=== PATIENT | male | born 1940 | race African-American/Black ===

== ENCOUNTER 2016-11-17 14:01 | Emergency (ER) | payer MEDICARE, MEDICAID ==
[~2016-11-17] VITALS: Ht 177.8 cm; Wt 77.1 kg
[~2016-11-17 14:01] MED LIST: ALLOPURINOL300 M1 ORAL; AMLODIPINE BESYL5 MG PO; BUSPAR10 MG ORAL; CELEBREX200 MG ORAL; CELEBREX200 MG PO; COGENTIN2 MG ORAL; COLCHICINE0.6 MG ORAL; COLCRYS0.6 M1 PO; FOLIC ACID1 MG ORAL; HALDOL 2 MG/ML PO; HALOPERIDOL1 MG ORAL; HALOPERIDOL1 MG PO; HYTRIN5 MG PO; NORVASC5 MG ORAL; QUETIAPINE FUM100 MG ORAL
[2016-11-17 14:08] VITALS: BP 154/105
--- NOTE | 2016-11-17 15:10 | Diagnostic Imaging Report ---
Indication: Chest Pain Comparison: 07/13/16 A single view chest radiograph was obtained. Findings: Lungs are clear but not evaluated well because the study is overexposed. Heart size is normal. Aorta is mildly enlarged. Bones are grossly unremarkable. Impression: No acute disease. Suboptimal study technically.
[2016-11-17 15:12] LABS: BASOPHILS % (AUTO) 1.1 % (0.0-2.0); EOSINOPHILS % (AUTO) 0.1 % (0.0-3.0); LYMPHOCYTES % (AUTO) 11.7 % (20.0-45.0); MEAN CORPUSCULAR HEMOGLOBIN 32.5 PG (27.0-31.0); MEAN CORPUSCULAR HGB CONC 32.9 G/DL (32.0-36.0); MEAN CORPUSCULAR VOLUME 99 FL (80-99); MEAN PLATELET VOLUME 8.5 FL (6.5-10.1); MONOCYTES % (AUTO) 6.8 % (1.0-10.0); NEUTROPHILS % (AUTO) 80.2 % (45.0-75.0); PLATELET COUNT 137 K/UL (150-450); RED CELL DISTRIBUTION WIDTH 13.3 % (11.6-14.8); WHITE BLOOD COUNT 9.3 K/UL (4.8-10.8)
--- NOTE | 2016-11-17 15:20 | Diagnostic Imaging Report ---
Indication: Cognitive impairment Technique: Contiguous 5 mm thick transaxial imaging of the head obtained in a Siemens Sensation [address] scanner. Soft tissue and bone windows generated. Total Dose length Product (DLP): [address] Dose Index Volume (CTDIvol): 70.38 mGy Comparison: none Findings: There is mild prominence of the ventricles, basal cisterns, and cerebral sulci consistent with atrophy. Mild, nonspecific, white matter hypoattenuation is noted throughout the brain consistent with chronic small vessel disease. There is no midline shift, edema, acute hemorrhage, mass effect, or abnormal extra-axial fluid collections. Bones and extra osseous soft tissues are unremarkable. Impression: No acute intracranial bleed, mass effect or edema. Mild atrophy of the brain. Nonspecific white matter hypoattenuation probably due to chronic small vessel disease. The CT scanner at [facility] is accredited by the [employer] and the scans are performed using protocols designed to limit radiation exposure to as low as reasonably achievable to attain images of sufficient resolution adequate for diagnostic evaluation.
[2016-11-17 15:34] LABS: ALANINE AMINOTRANSFERASE 7 U/L (3-41); ALBUMIN/GLOBULIN RATIO 1.7 (1.0-2.7); ANION GAP 18 (5-15); ASPARTATE AMINO TRANSFERASE 17 U/L (5-40); CARBON DIOXIDE 23 mEQ/L (20-30); CHLORIDE 100 mEQ/L (98-107); CREATININE 0.9 mg/dL (0.7-1.2); HEMOLYSIS 64; SODIUM 141 mEQ/L (135-145); TOTAL PROTEIN 7.2 g/dL (6.6-8.7); TROPONIN I < 0.30 ng/mL (<=0.30)
[2016-11-17 15:35] LABS: AMMONIA 29 umol/L (16-60)
[2016-11-17 15:49] LABS: ACETAMINOPHEN < 10 ug/mL (10-30); ALCOHOL < 10 mg/dL
[2016-11-17 15:59] LABS: CKMB < 1.5 ng/mL (< 6.7)
[2016-11-17 16:44] LABS: APPEARANCE,URINE CLEAR; KETONES,URINE NEGATIVE (NEGATIVE); LEUKOCYTE ESTERASE ,URINE NEGATIVE (NEGATIVE); NITRITE,URINE NEGATIVE (NEGATIVE); PH,URINE 6.5 (4.5-8.0); PROTEIN,URINE 2+ (NEGATIVE); UROBILINOGEN,URINE NORMAL MG/DL (0.0-1.0)
[2016-11-17 16:49] VITALS: BP 148/84
[2016-11-17 16:51] VITALS: BP 148/84
[2016-11-17 16:57] LABS: BACTERIA,URINE FEW /HPF; WBC,URINE 0-2 /HPF (0 - 0)
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
--- NOTE | 2016-12-20 03:28 | Cardiology Report ---
APPROVED REPORT EKG Measurement Heart [id number] Sinus rhythm with premature atrial complexes Otherwise normal ECG
== END 2016-11-17 17:00 | disposition home or self-care (01) ==
LOC: EDBD 14:01 → EMR 14:14
DX: F31.9 Bipolar disorder, unspecified (principal); I10 Essential (primary) hypertension; N40.0 Benign prostatic hyperplasia without lower urinary tract symptoms
CPT/HCPCS: 36415; 70450; 71010; 80053; 80300; 81003; 82140; 82550; 82553; 84484; 85025; 93005; 96360; 96361; 99284; G0480; 80329

== ENCOUNTER 2016-12-15 13:45 | Outpatient (RCR) | payer MEDICARE, MEDICAID | END 2016-12-23 | disposition home or self-care (01) | LOC: PTY 13:45 | DX: R26.9 Unspecified abnormalities of gait and mobility (principal) | CPT/HCPCS: 97110; 97162; G8978; G8979 ==

== ENCOUNTER 2016-12-29 12:30 | Outpatient (RCR) | payer MEDICARE, MEDICAID | END 2017-01-23 | disposition home or self-care (01) | LOC: PTY 12:30 | DX: R26.9 Unspecified abnormalities of gait and mobility (principal) ==

== ENCOUNTER 2017-07-13 13:31 | Outpatient (RCR) | payer MEDICARE, MEDICAID, OTHER | END 2017-07-25 | disposition home or self-care (01) | LOC: PTY 13:31 | DX: R53.1 Weakness (principal); R26.9 Unspecified abnormalities of gait and mobility; I10 Essential (primary) hypertension; Z86.73 Personal history of transient ischemic attack (TIA), and cerebral infarction without residual deficits; F31.9 Bipolar disorder, unspecified; Z91.81 History of falling; F41.9 Anxiety disorder, unspecified; F32.9 Major depressive disorder, single episode, unspecified | CPT/HCPCS: 97110; 97161; G8978; G8979 ==

== ENCOUNTER 2017-08-19 13:00 | Outpatient (RCR) | payer MEDICARE, MEDICAID | END 2017-08-25 | disposition home or self-care (01) | LOC: PTY 13:00 | DX: R53.1 Weakness (principal); R26.9 Unspecified abnormalities of gait and mobility ==

== ENCOUNTER 2017-09-21 13:38 | Outpatient (RCR) | payer MEDICARE, MEDICAID, OTHER | END 2017-09-24 | disposition home or self-care (01) | LOC: PTY 13:38 | DX: R53.1 Weakness (principal); R26.9 Unspecified abnormalities of gait and mobility; Z86.73 Personal history of transient ischemic attack (TIA), and cerebral infarction without residual deficits; I10 Essential (primary) hypertension; F31.9 Bipolar disorder, unspecified; F41.9 Anxiety disorder, unspecified; Z87.820 Personal history of traumatic brain injury ==

== ENCOUNTER 2017-09-28 13:54 | Outpatient (RCR) | payer MEDICARE, MEDICAID, OTHER ==
--- NOTE | 2017-10-12 09:11 | IOP Physician Progress Note ---
IOP Physician Progress Note Problem: other (specify) Description of Symptoms: bipolar disorder is the essential part of the picture, but he continues to use MJ to quell dysphoria. Diagnosis [place] I: Bipolar disorder, mixed type [place]: II deferred [place]: III arthritis, high BP, BPH, gout [place]: IV sensitive to stressors [place]: V 31-40 Progress Since Last Eval: Fair. Current Med Management: Refill given for haloperidol Home Meds: Reported Medications Buspirone Hcl* (BUSPAR*) 10 Mg Tablet, 10 MG ORAL hs, #15 TAB 0 Refills 02/07/15 Allopurinol* (ALLOPURINOL*) 300 Mg Tablet, 300 MG ORAL DAILY, TAB 07/04/14 Colchicine (COLCRYS) 0.6 Mg Tablet, 0.6 MG PO bid, TAB 07/04/14 Terazosin HCl (Terazosin HCl) 5 Mg Cap, 5 MG PO QHS, CAP 0 Refills 07/04/14 Folic Acid* (FOLIC ACID*) 1 Mg Tablet, 1 MG ORAL DAILY, TAB 07/04/14 Haloperidol* (HALDOL*) 1 Mg Tablet, 20 MG ORAL bedtime, TAB 09/06/13 Benztropine Mesylate* (COGENTIN*) 2 Mg Tab, 2 MG ORAL BEDTIME, TAB 07/04/13 Celecoxib* (CELEBREX*) 200 Mg Capsule, 200 MG PO DAILY 01/13/13 Amlodipine Besylate* (AMLODIPINE BESYLATE*) 5 Mg Tablet, 5 MG PO DAILY 01/13/13 Appearance: well groomed Affect: labile Mood: no abnormalities, anxious Thought Process: no abnormalities Thought Content: no abnormalities Suicidal/Homicidal Ideations: not present Risk Assessment: low risk at this time Cognition: no abnormalities Accomplishments before DC: Needs to deal with feelings without recourse to marijuana Comments No physical problems are acute. PHIL MCKINNEY Oct 12, 2017 09:11
== END 2017-10-25 | disposition home or self-care (01) ==
LOC: PTY 13:54
DX: R53.1 Weakness (principal); R26.89 Other abnormalities of gait and mobility; Z86.73 Personal history of transient ischemic attack (TIA), and cerebral infarction without residual deficits; I10 Essential (primary) hypertension; F31.9 Bipolar disorder, unspecified; F41.9 Anxiety disorder, unspecified
CPT/HCPCS: 97110; G8978; G8979

== ENCOUNTER 2017-11-06 13:45 | Outpatient (RCR) | payer MEDICARE, MEDICAID, OTHER ==
--- NOTE | 2017-10-27 15:22 | IOP Daily Group Progress Note ---
IOP Daily Group Progress Note Treatment Plan/Target Problem: Date: Oct 27, 2017 Problem: impaired thoughts Program: reflections Group Reflections - Thursday: group 2 (10:35am-11:20am) Therapy Focus/Approach of Group: skills Goal(s) of Group: communication skills, goal setting, improving self esteem, increasing independence, measurable signs of progress, socialization skills Observations: concrete thinking, constricted affect, delusions, depressed mood , participated Staff Intervention: assisted identifying coping tools, clarified pt issues, facilitated discussion, normalized feelings, provided psycho-education, provided support, summarized, validated feelings Response/Progress Noted: Skills- Focus was on setting goals that are realistic, achievable and measurable. Patient was asked to set weekly and goal for month.. The patient was also asked if they believe in new years resolution and if so what is their resolution for coming year. The pt could be seen at time talking to himself quietly and responding to internal stimuli. The pt stated "I don't really have resolutions for year.I keep a daily hit list and check thing off as I go along. I continue daily, so I focus on daily goal rather then yearly goals." CAREY CROWLEY Oct 27, 2017 15:22
--- NOTE | 2017-10-27 16:07 | IOP Daily Group Progress Note ---
IOP Daily Group Progress Note Treatment Plan/Target Problem: Date: Oct 27, 2017 Problem: impaired thoughts Program: reflections Group Reflections - Thursday: group 3 (11:30am-12:15pm) Therapy Focus/Approach of Group: symptoms Goal(s) of Group: assertiveness skills, communication skills, coping tools for symptoms, establishing appropriate boundaries, explore relationships to family, identify triggers to symptoms, interpersonal relationships, socialization skills , symptom management Observations: concrete thinking, constricted affect, delusions, depressed mood , participated Staff Intervention: facilitated discussion, provided psycho-education, provided support, summarized, taught assertiveness skills Staff Intervention: Symptom Management. Group discussed handout on Assertive Communication Skill. Learning to say NO and setting limitations and boundaries with others. The pt stated " With people who are not my family members I have no trouble say no and setting limits. However with my daughter and grandchildren it can be challenging. I sometimes say yes when I want to say no." CAREY CROWLEY Oct 27, 2017 16:06
--- NOTE | 2017-11-17 16:38 | IOP Daily Group Progress Note ---
IOP Daily Group Progress Note Treatment Plan/Target Problem: Problem: impaired thoughts Program: reflections Group Reflections - Thursday: group 1 (9:40am-10:25am) Therapy Goal(s) of Group: identify mood, impact of current issues on mood, verbalize current thoughts and mood Observations: anxious, engaged, open, participated, positive mood, self disclosing, responded to prompts Staff Intervention: assessed for safety/suicidality, assessed pt's current mood , encouraged patient participation, facilitated discussion, prompted pt, provided support, reflective listening, validated progress Staff Intervention: Therapist prompted pt to identify and verbalize current mood and impact of life stressors on current mood. Response/Progress Noted: Pt participated in a therapeutic process group exercise helping the PT to identify and verbalize their current mood and to identify and verbalize the impact of their current life issues on their mood. 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 Pt. denied suicidal/ homicidal ideation or plan. Mehran Calles Nov 17, 2017 16:38
--- NOTE | 2017-11-18 15:36 | IOP Daily Group Progress Note ---
IOP Daily Group Progress Note Treatment Plan/Target Problem: Date: Nov 18, 2017 Problem: depression Program: reflections Group - Thursday: group 1 (9:40am-10:25am) Therapy Focus/Approach of Group: process Goal(s) of Group: goal setting, identify mood, impact of current issues on mood , verbalize current thoughts and mood, weekend planning Observations: attentive, engaged, open, participated, positive mood, self disclosing, responded to prompts Staff Intervention: assessed for safety/suicidality, assessed pt's current mood , encouraged patient participation, facilitated discussion, helped to set goals , prompted pt, provided support, reflective listening, validated feelings Staff Intervention: Therapist prompted pt to identify and verbalize his current mood and what he is feeling, the impact of life stressors on current mood and to identify and verbalize one goal he would like to accomplish during the following week. Therapist provided a safe space for patients to share and work on their issues. Response/Progress Noted: Pt participated in a therapeutic process group exercise helping the PT to identify and verbalize their current mood and to identify and verbalize the impact of their current life issues on their mood. Pt benefited from the group as evidenced by stating that he is feeling "relaxed and hopeful" and has a goal of making an appointment for physical therapy to help with his legs. Pt. denied suicidal/homicidal ideation or plan. Mehran Calles Nov 18, 2017 15:36
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
== END 2017-11-25 | disposition home or self-care (01) ==
LOC: PTY 13:45
DX: R26.89 Other abnormalities of gait and mobility (principal); M10.9 Gout, unspecified; M19.90 Unspecified osteoarthritis, unspecified site; I73.9 Peripheral vascular disease, unspecified

== ENCOUNTER 2017-12-07 13:00 | Outpatient (RCR) | payer MEDICARE, MEDICAID, OTHER ==
--- NOTE | 2017-12-08 09:05 | IOP Physician Progress Note ---
IOP Physician Progress Note Problem: other (specify) Description of Symptoms: The patient says that he is doing better, that he is no longer having racing thoughts. They began in 1973, and continued intermittently, years at a time, then gone for years, but have stopped in recent years. He thinks it is caused by the Republicans!, and he starts calling the FBI. Diagnosis [place] I: Bipolar disorder, mixed type [place]: II deferred [place]: III on waker for gait instabilty, aarthritisw, BPH, high BP, gout [place]: IV moderate [place]: V 31-40 Progress Since Last Eval: The patient describes, calmly, what sound like psychotic experiences. Current Med Management: This is not changing at this time. Home Meds: Reported Medications Buspirone Hcl* (BUSPAR*) 10 Mg Tablet, 10 MG ORAL hs, #15 TAB 0 Refills 02/07/15 Allopurinol* (ALLOPURINOL*) 300 Mg Tablet, 300 MG ORAL DAILY, TAB 07/04/14 Colchicine (COLCRYS) 0.6 Mg Tablet, 0.6 MG PO bid, TAB 07/04/14 Terazosin HCl (Terazosin HCl) 5 Mg Cap, 5 MG PO QHS, CAP 0 Refills 07/04/14 Folic Acid* (FOLIC ACID*) 1 Mg Tablet, 1 MG ORAL DAILY, TAB 07/04/14 Haloperidol* (HALDOL*) 1 Mg Tablet, 20 MG ORAL bedtime, TAB 09/06/13 Benztropine Mesylate* (COGENTIN*) 2 Mg Tab, 2 MG ORAL BEDTIME, TAB 07/04/13 Celecoxib* (CELEBREX*) 200 Mg Capsule, 200 MG PO DAILY 01/13/13 Amlodipine Besylate* (AMLODIPINE BESYLATE*) 5 Mg Tablet, 5 MG PO DAILY 01/13/13 Appearance: well groomed Affect: labile Mood: anxious Thought Process: illogical Thought Content: other - racing thoughts are gone, he says Suicidal/Homicidal Ideations: not present Risk Assessment: low risk at this time Accomplishments before DC: Needs to work on containment of manic behavior and thinking. Comments There are no acute physical problems. PHIL MCKINNEY Dec 08, 2017 09:05
== END 2017-12-23 | disposition home or self-care (01) ==
LOC: PTY 13:00
DX: R26.89 Other abnormalities of gait and mobility (principal); M10.9 Gout, unspecified; M19.90 Unspecified osteoarthritis, unspecified site; I73.9 Peripheral vascular disease, unspecified

== ENCOUNTER 2018-01-05 10:13 | Outpatient (RCR) | payer MEDICARE, MEDICAID, OTHER ==
--- NOTE | 2018-01-08 13:39 | IOP Daily Group Progress Note ---
IOP Daily Group Progress Note Treatment Plan/Target Problem: Problem: depression Group Reflections - : group 3 (11:30am-12:15pm) Therapy Focus/Approach of Group: symptoms Goal(s) of Group: anxiety reduction, coping tools for symptoms, counteracting negative thinking, decreasing isolation, identify activities to improve mood, support systems, symptom management, verbalize current thoughts and mood Goal(s) of Group: Goal of group was to introduce new thp to group and to identify current sxs and discuss how pts use coping skills to manage their sxs effectively. Observations: attentive, engaged, participating actively, positive mood, relaxed, self disclosing, responded to prompts Staff Intervention: assessed pt's current mood, assisted with identifying symptoms, encouraged patient participation, facilitated discussion, normalized feelings, provided support, reflective listening, summarized, validated feelings Staff Intervention: Thp prompted pt to identify current sxs of most significant impact and evaluate effective coping skills and successful approaches to sxs management. Thp provided positive verbal reinforcement for pts efforts to reduce impact of depressive sxs through behavioral activation and positive self-care. Response/Progress Noted: Pt discussed hx of MH sxs, including depression, anxiety, racing thoughts, and a remote hx of hallucinations ("[id number]"). Pt described using medical mj and prescription meds to cope w/ intermittent sxs and depressive episodes. Pt. presented w/ a positive demeanor and appeared enthusiastic and motivated to participate. ELIDA DICKENS Jan 08, 2018 13:39
--- NOTE | 2018-01-08 14:18 | IOP Daily Group Progress Note ---
IOP Daily Group Progress Note Treatment Plan/Target Problem: Problem: depression Group Reflections - Thursday: group 3 (11:30am-12:15pm) Therapy Focus/Approach of Group: symptoms Goal(s) of Group: anxiety reduction, coping tools for symptoms, counteracting negative thinking, decreasing isolation, how med issues impact mood, identify mood, support systems, symptom management, verbalize current thoughts and mood Goal(s) of Group: Goal of group was to introduce new thp to group and to identify current sxs and discuss how pts use coping skills to manage their sxs effectively. Observations: active listening skills, participating actively, responded to prompts Staff Intervention: assessed pt's current mood, assisted identifying coping tools, assisted with identifying symptoms, facilitated discussion, normalized feelings, provided support, reflective listening, validated feelings Staff Intervention: Thp prompted pt to identify current sxs of most significant impact and evaluate effective coping skills and successful approaches to sxs management. Thp provided positive verbal reinforcement for pts efforts to reduce impact of depressive sxs through behavioral activation and positive self-care. Response/Progress Noted: Pt declined to discuss current sxs management in great detail and appeared pleased to defer discussion to other participants. Pt listened attentively to others and expressed sympathy and concern for others in group. ELIDA DICKENS Jan 08, 2018 14:18
--- NOTE | 2018-01-11 09:09 | IOP Physician Progress Note ---
IOP Physician Progress Note Problem: other (specify) Description of Symptoms: The patient says that he has missed some time in the program as he had the flu, but that he is ok emotionally. He continues to smoke MJ daiily, without any sense it might contribute to his problems. Denies racing thoughts for the past 3 weeks. Diagnosis [place] I: Bipolar disorder, mixed type; substance abuse [place]: II deferred [place]: III BPH, arthritis, high BP, gout [place]: IV moderate [place]: V 31-40 Progress Since Last Eval: The patient thinks he is doing better; to me he seems about the same. Current Med Management: There are no changes planned. Home Meds: Reported Medications Buspirone Hcl* (BUSPAR*) 10 Mg Tablet, 10 MG ORAL hs, #15 TAB 0 Refills 02/07/15 Allopurinol* (ALLOPURINOL*) 300 Mg Tablet, 300 MG ORAL DAILY, TAB 07/04/14 Colchicine (COLCRYS) 0.6 Mg Tablet, 0.6 MG PO bid, TAB 07/04/14 Terazosin HCl (Terazosin HCl) 5 Mg Cap, 5 MG PO QHS, CAP 0 Refills 07/04/14 Folic Acid* (FOLIC ACID*) 1 Mg Tablet, 1 MG ORAL DAILY, TAB 07/04/14 Haloperidol* (HALDOL*) 1 Mg Tablet, 20 MG ORAL bedtime, TAB 09/06/13 Benztropine Mesylate* (COGENTIN*) 2 Mg Tab, 2 MG ORAL BEDTIME, TAB 07/04/13 Celecoxib* (CELEBREX*) 200 Mg Capsule, 200 MG PO DAILY 01/13/13 Amlodipine Besylate* (AMLODIPINE BESYLATE*) 5 Mg Tablet, 5 MG PO DAILY 01/13/13 Appearance: well groomed Affect: labile Mood: anxious Thought Process: illogical Thought Content: no abnormalities - history of raacing thoughts, but he says they are in remission, other Suicidal/Homicidal Ideations: not present Risk Assessment: low risk at this time Cognition: no abnormalities Accomplishments before DC: The patient could benefit by being less reliant upon marijuana Comments There are no acute physical problems. Selvin Greenfield MD Jan 11, 2018 09:09
== END 2018-01-23 | disposition home or self-care (01) ==
LOC: PTY 10:13
DX: R26.89 Other abnormalities of gait and mobility (principal); M10.9 Gout, unspecified; M19.90 Unspecified osteoarthritis, unspecified site; I73.9 Peripheral vascular disease, unspecified

== ENCOUNTER 2018-02-11 10:00 | Outpatient (RCR) | payer MEDICARE, MEDICAID, OTHER | END 2018-02-22 | disposition home or self-care (01) | LOC: PTY 10:00 | DX: R26.9 Unspecified abnormalities of gait and mobility (principal); M10.9 Gout, unspecified; M19.90 Unspecified osteoarthritis, unspecified site; I73.9 Peripheral vascular disease, unspecified ==

== ENCOUNTER 2018-03-02 10:50 | Outpatient (RCR) | payer MEDICARE, MEDICAID, OTHER ==
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
== END 2018-03-25 | disposition home or self-care (01) ==
LOC: PTY 10:50
DX: R26.9 Unspecified abnormalities of gait and mobility (principal); M10.9 Gout, unspecified; M19.90 Unspecified osteoarthritis, unspecified site; I73.9 Peripheral vascular disease, unspecified

== ENCOUNTER 2018-03-30 09:30 | Outpatient (RCR) | payer MEDICARE, MEDICAID | END 2018-04-24 | disposition home or self-care (01) | LOC: PTY 09:30 | DX: R26.9 Unspecified abnormalities of gait and mobility (principal) | CPT/HCPCS: 97110; G8978; G8979 ==

== ENCOUNTER 2018-04-29 09:13 | Outpatient (RCR) | payer MEDICARE, MEDICAID ==
--- NOTE | 2018-05-10 09:21 | IOP Physician Progress Note ---
IOP Physician Progress Note Problem: impaired thoughts Description of Symptoms: The patient says he is doing well, but he seems unstable to me. The patient says he forgot to take his haldol and was up for 48 hours. He also says he takes buspar regularly, but in fact ran out a long time ago. This all reflects upon his disorganization. Diagnosis [place] I: Bipolar disorder [place]: II deferred [place]: III arthritis, BPH,. hi BP, gout [place]: IV moderate [place]: V 31-=40 Progress Since Last Eval: The patient remains much the same, living in considerable denial of his issues, reluctant to identify as a patient., Current Med Management: Refill given for bupsar and haldol. Home Meds: Reported Medications Buspirone Hcl* (BUSPAR*) 10 Mg Tablet, 10 MG ORAL hs, #15 TAB 0 Refills 02/07/15 Allopurinol* (ALLOPURINOL*) 300 Mg Tablet, 300 MG ORAL DAILY, TAB 07/04/14 Colchicine (COLCRYS) 0.6 Mg Tablet, 0.6 MG PO bid, TAB 07/04/14 Terazosin HCl (Terazosin HCl) 5 Mg Cap, 5 MG PO QHS, CAP 0 Refills 07/04/14 Folic Acid* (FOLIC ACID*) 1 Mg Tablet, 1 MG ORAL DAILY, TAB 07/04/14 Haloperidol* (HALDOL*) 1 Mg Tablet, 20 MG ORAL bedtime, TAB 09/06/13 Benztropine Mesylate* (COGENTIN*) 2 Mg Tab, 2 MG ORAL BEDTIME, TAB 07/04/13 Celecoxib* (CELEBREX*) 200 Mg Capsule, 200 MG PO DAILY 01/13/13 Amlodipine Besylate* (AMLODIPINE BESYLATE*) 5 Mg Tablet, 5 MG PO DAILY 01/13/13 Appearance: well groomed Affect: expansive Mood: expansive Thought Process: illogical Thought Content: no abnormalities Suicidal/Homicidal Ideations: not present Risk Assessment: low risk at this time Cognition: no abnormalities Accomplishments before DC: The patient needs to work on better strucfturing of his life and dealing with issues of bipolarity. Comments There are no acute physical problems. Selvin Greenfield MD May 10, 2018 09:21
--- NOTE | 2018-05-25 14:47 | IOP Daily Group Progress Note ---
IOP Daily Group Progress Note Treatment Plan/Target Problem: Date: May 25, 2018 Group Reflections - Thursday: group 3 (11:30am-12:15pm) Therapy Goal(s) of Group: increasing independence, interpersonal relationships, positive thoughts to improve mood, socialization skills, symptom management Observations: active listening skills, attentive, lucid, made insightful comments, participated spontaneously, smiled when appropriate Staff Intervention: provided psycho-education, provided reassurance, provided redirection, provided support, reflective listening Staff Intervention: Therapist provided the group with a worksheet about how relationships influence and the individuals mood and reflects in his/ her behaviors. Therapist describe the emotional connection between relationships and mood changes, and invited pt to share related experiences with the group. Therapist facilitated the discussion prompting pt to participate and provide feedback to peers .Therapist provided emotional support and validated pt feelings Response/Progress Noted: Pt was very active during group discussion, he was able to share a personal situation with the group and ask for feedback and listened to them with attention. Pt stated I have a situation, there is this young girl of 32 years old that calls me because she wants to have relationship with me but she hangs up and say nothing. Pt benefited from group participation by learning to further develop awareness of the influence of relationships in mood changes and behaviors. JAYCOB AHUMADA May 25, 2018 14:47
== END 2018-05-25 | disposition home or self-care (01) ==
LOC: PTY 09:13
DX: R26.9 Unspecified abnormalities of gait and mobility (principal)

== ENCOUNTER 2018-06-08 09:25 | Outpatient (RCR) | payer MEDICARE, MEDICAID ==
--- NOTE | 2018-06-08 15:24 | IOP Daily Group Progress Note ---
IOP Daily Group Progress Note Group Reflections - Thursday: group 3 (11:30am-12:15pm) Therapy Goal(s) of Group: coping tools for symptoms, identify activities to improve mood, symptom management Staff Intervention: clarified pt issues, facilitated discussion, prompted pt Staff Intervention: The therapist opened the group with psychoeducation; explaining how behavioral health symptoms can exacerbate to the point of a personal crisis without early intervention by self and others. Therapist facilitate a group process wherein clients identified several behavioral health symptoms they are currently struggling with as well as several tools and techniques that can be applied to effectively manage such symptoms. In addition, the therapist engaged the group in a 3-minute Breathing Space mindfulness exercise to demonstrate one way of training to mind to notice subtle symptoms as a means of prevention. Response/Progress Noted: The client seemed highly guarded and disinterested in actively participating in today's group. For example, he firmly responded "that's it" after saying just a few words about his thoughts about symptom management; then, he said "you can write whatever you want on the board" following the therapist's request to list "taking your medication as prescribed" on the white board after he mentioned this in his share. Mik Cunha LCSW Jun 08, 2018 15:24
--- NOTE | 2018-06-15 13:27 | IOP Daily Group Progress Note ---
IOP Daily Group Progress Note Group Reflections - Thursday: group 3 (11:30am-12:15pm) Therapy Goal(s) of Group: socialization skills, stress reduction, support systems, symptom management, verbalize current thoughts and mood Observations: made insightful comments, participated spontaneously, participating actively, self disclosing Staff Intervention: reframed, set limits, summarized, taught assertiveness skills Staff Intervention: Topic for this Symptom Management group was: Self-care Assessment. Therapist used an handout from [employer] that appraises self-care in different domains such as emotional, physical and social. Therapist educated on the importance of Self-Care to develop awareness, positive outlook of life, and stress reduction. Therapist facilitate the group discussion and helped the client to complete the self-assessment worksheet review the areas of self-care that needed improvement. Therapist followed this up with a group discussion, encouraging patients to use this information in moving forward incorporating it in their activities planning. Response/Progress Noted: Pt participated in a therapeutic process group exercise helping the PT to assess and verbalize their current self-care strategies and evaluate the impact on their mood. Patient denied suicidal/homicidal ideation or plan. Patient stated I used to do more in general more walking, going to the gym, taking 2 or 3 showers every day, now with my legs as they are and with the walker I am working in not losing my legs I maintaining what I have. Now that I cannot do physical activity I am writing more .That is my self-care. Pt. benefitted from group by not only by reflecting on herself but by listening to his peers share what helps them with their healing. JAYCOB AHUMADA Jun 15, 2018 13:27
== END 2018-06-25 | disposition home or self-care (01) ==
LOC: PTY 09:25
DX: R26.9 Unspecified abnormalities of gait and mobility (principal); R53.1 Weakness; I10 Essential (primary) hypertension; Z86.73 Personal history of transient ischemic attack (TIA), and cerebral infarction without residual deficits; M19.90 Unspecified osteoarthritis, unspecified site; F41.9 Anxiety disorder, unspecified; F31.9 Bipolar disorder, unspecified; M10.9 Gout, unspecified; I73.9 Peripheral vascular disease, unspecified

== ENCOUNTER 2018-06-29 09:49 | Inpatient (IN) | payer MEDICARE, MEDICAID ==
[~2018-06-29] VITALS: Ht 185.4 cm; Wt 74.4 kg
[2018-06-29] MEDS ORDERED: Sodium Chloride 500ML 500 ML IV ONE (10:31)
[2018-06-29 11:24] LABS: BASOPHILS % (AUTO) 0.9 % (0.0-2.0); EOSINOPHILS % (AUTO) 1.9 % (0.0-3.0); HEMATOCRIT 43.9 % (42.0-52.0); LYMPHOCYTES % (AUTO) 17.1 % (20.0-45.0); MEAN CORPUSCULAR VOLUME 97 FL (80-99); MONOCYTES % (AUTO) 6.4 % (1.0-10.0); NEUTROPHILS % (AUTO) 73.8 % (45.0-75.0); PLATELET COUNT 151 K/UL (150-450); RED BLOOD COUNT 4.53 M/UL (4.70-6.10); RED CELL DISTRIBUTION WIDTH 12.6 % (11.6-14.8); WHITE BLOOD COUNT 9.2 K/UL (4.8-10.8)
[2018-06-29 11:25] VITALS: BP 121/87
[2018-06-29 11:33] LABS: ANION GAP 13 mmol/L (5-15); BLOOD UREA NITROGEN 12 mg/dL (7-18); CALCIUM 8.6 MG/DL (8.5-10.1); CARBON DIOXIDE 22 MMOL/L (21-32); CHLORIDE 104 MMOL/L (98-107); CREATININE 1.1 MG/DL (0.55-1.30); POTASSIUM 3.3 MMOL/L (3.5-5.1); SODIUM 139 MMOL/L (136-145)
[2018-06-29 11:47] LABS: ALANINE AMINOTRANSFERASE 14 U/L (12-78); ALBUMIN 3.8 G/DL (3.4-5.0); ALBUMIN/GLOBULIN RATIO 1.1 (1.0-2.7); ALKALINE PHOSPHATASE 56 U/L (46-116); ASPARTATE AMINO TRANSFERASE 14 U/L (15-37); BILIRUBIN,TOTAL 0.8 MG/DL (0.2-1.0); CKMB 1.1 NG/ML (0.0-3.6); CREATINE KINASE 58 U/L (26-308)
--- NOTE | 2018-06-29 11:55 | Diagnostic Imaging Report ---
Indication: Chest pain Technique: One view of the chest Comparison: 11/17/2016 Findings: The heart is borderline enlarged. This may be artifactual in part due to to suboptimal inspiration. Lungs and pleural spaces are clear. The aorta is somewhat ectatic Impression: Border line cardiomegaly. No acute process
--- NOTE | 2018-06-29 12:44 | Emergency Room Report ---
History of Present Illness General Chief Complaint: General Complaint Source: Patient Present Illness HPI Patient was seen by Dr. Jamie borjas last week Patient was found to be in new-onset atrial fibrillation Patient was recommended to present to the emergency room at that time however patient reports that he was feeling fine Recently he began having palpitation sensation And presents to the ER Denies any chest pain Allergies: Coded Allergies: No Known Allergies (Unverified , 01/13/13) Patient History Past Medical History: see triage record Pertinent Family History: none Reviewed Nursing Documentation: PMH: Agreed; PSxH: Agreed Nursing Documentation-PMH Past Medical History: No History, Except For Hx Hypertension: Yes Hx COPD: No - BPH Review of Systems All Other Systems: negative except mentioned in HPI Physical Exam Vital Signs Date Time Temp Pulse Resp B/P (MAP) Pulse Ox O2 Delivery O2 Flow Rate FiO2 06/29/18 10:12 97.4 79 18 147/88 97 Room Air 97.3 Sp02 EP Interpretation: reviewed, normal General Appearance: well appearing, no apparent distress Head: normocephalic, atraumatic Eyes: bilateral eye PERRL, bilateral eye EOMI ENT: hearing grossly normal, normal pharynx, TMs + canals normal, uvula midline Neck: full range of motion, supple, no meningismus, no bony tend Respiratory: lungs clear, normal breath sounds, no rhonchi, no respiratory distress, no retraction, no accessory muscle use Cardiovascular #1: normal peripheral pulses, no edema, no gallop, no JVD, no murmur, irregularly irregular Gastrointestinal: normal bowel sounds, non tender, soft, no mass, no organomegaly, non-distended, no guarding, no hernia, no pulsatile mass, no rebound Genitourinary: no CVA tenderness Musculoskeletal: other - Patient uses a walker has had previous hip injury Neurologic: oriented x3, responsive, house manager III-XII nml as tested, motor strength/ tone normal, sensory intact Psychiatric: mood/affect normal Skin: normal color, no rash, warm/dry, palpation normal Lymphatic: normal inspection, no adenopathy Medical Decision Making Diagnostic Impression: Primary Impression: New onset atrial fibrillation ER Course Patient is a fairly complex patient with multiple differential to consideration including but not limited to cardiac cardiopulmonary and vascular emergencies Patient does show EKG findings consistent with atrial fibrillation Patient at this time does not meet criteria for acute cardioversion Medicinal intervention has not been required given the patient's heart rate Further investigation regarding the acute onset of nature fibrillation is required patient admitted for further inpatient care CBC no acute disease Chem-7 no acute disease BNP elevated Troponin negative Urine drug screen positive marijuana EKG Diagnostic Results Rate: other Rhythm: other - Irregularly irregular ST Segments: other - Irregularly irregular, rate 90 Rhythm Strip Diag. Results EP Interpretation: yes Rate: 90 Rhythm: no PVC's, no ectopy, other - Irregularly irregular Chest X-Ray Diagnostic Results Chest X-Ray Diagnostic Results : Chest X-Ray Ordered: Yes # of Views/Limited/Complete: 1 View Indication: Chest Pain EP Interpretation: Yes Interpretation: no consolidation, no effusion, no pneumothorax, other - Borderline cardiomegaly Impression: No acute disease Electronically Signed by: Chrissie Noble DO Last Vital Signs Date Time Temp Pulse Resp B/P (MAP) Pulse Ox O2 Delivery O2 Flow Rate FiO2 06/29/18 11:25 97.3 75 18 121/87 98 Room Air 97.3 Status: improved Disposition: ADMITTED INPATIENT Condition: Serious Scripts Acetaminophen* (ACETAMINOPHEN 325MG TABLET*) 325 Mg Tablet 650 MG ORAL Q4H PRN for 30 Days, #100 TAB Prov: Jamie Borjas MD 07/01/18 Apixaban (ELIQUIS) 2.5 Mg Tablet 5 MG ORAL BID for 30 Days, #60 TAB Prov: Jamie Borjas MD 07/01/18 Referrals: Jamie Borjas MD (PCP) Chrissie Noble DO Jun 29, 2018 12:44
[2018-06-29 12:45] VITALS: BP 125/89
--- NOTE | 2018-06-29 14:09 | Cardiology Progress Note ---
Assessment/Plan Assessment/Plan afiib perssitent recent onset htn bph bipolar do hs of tobacco etoh adn marijuan use s/p partila colectomy for divertiulitis hs o fall 2015 with no evidnec of ic bleed [id number] is controlled need anticoagualtion with eliquis after 4 week of antiocagulation will cosndier cardioversion Objective Last 24 Hour Vital Signs Date Time Temp Pulse Resp B/P (MAP) Pulse Ox O2 Delivery O2 Flow Rate FiO2 06/29/18 13:24 Room Air 06/29/18 13:10 97.3 82 18 125/89 98 Room Air 97.3 06/29/18 12:45 97.3 82 18 125/89 98 Room Air 97.3 06/29/18 11:25 97.3 75 18 121/87 98 Room Air 97.3 06/29/18 10:12 97.4 79 18 147/88 97 Room Air 97.3 Laboratory Tests Test 06/29/18 10:45 06/29/18 11:55 White Blood Count 9.2 K/UL (4.8-10.8) Red Blood Count 4.53 M/UL (4.70-6.10) L Hemoglobin 15.0 G/DL (14.2-18.0) Hematocrit 43.9 % (42.0-52.0) Mean Corpuscular Volume 97 FL (80-99) Mean Corpuscular Hemoglobin 33.2 PG (27.0-31.0) H Mean Corpuscular Hemoglobin Concent 34.2 G/DL (32.0-36.0) Red Cell Distribution Width 12.6 % (11.6-14.8) Platelet Count 151 K/UL (150-450) Mean Platelet Volume 7.6 FL (6.5-10.1) Neutrophils (%) (Auto) 73.8 % (45.0-75.0) Lymphocytes (%) (Auto) 17.1 % (20.0-45.0) L Monocytes (%) (Auto) 6.4 % (1.0-10.0) Eosinophils (%) (Auto) 1.9 % (0.0-3.0) Basophils (%) (Auto) 0.9 % (0.0-2.0) Sodium Level 139 MMOL/L (136-145) Potassium Level 3.3 MMOL/L (3.5-5.1) L Chloride Level 104 MMOL/L (98-107) Carbon Dioxide Level 22 MMOL/L (21-32) Anion Gap 13 mmol/L (5-15) Blood Urea Nitrogen 12 mg/dL (7-18) Creatinine 1.1 MG/DL (0.55-1.30) Estimat Glomerular Filtration Rate mL/min (>60) Glucose Level 153 MG/DL (74-106) H Calcium Level 8.6 MG/DL (8.5-10.1) Total Bilirubin 0.8 MG/DL (0.2-1.0) Aspartate Amino Transf (AST/SGOT) 14 U/L (15-37) L Alanine Aminotransferase (ALT/SGPT) 14 U/L (12-78) Alkaline Phosphatase 56 U/L (46-116) Total Creatine Kinase 58 U/L (26-308) Creatine Kinase MB 1.1 NG/ML (0.0-3.6) Creatine Kinase MB Relative Index 1.8 Troponin I 0.001 ng/mL (0.000-0.056) Pro-B-Type Natriuretic Peptide 1307 pg/mL (0-125) H Total Protein 7.2 G/DL (6.4-8.2) Albumin 3.8 G/DL (3.4-5.0) Globulin 3.4 g/dL Albumin/Globulin Ratio 1.1 (1.0-2.7) Lipase 163 U/L (73-393) Urine Opiates Screen Negative (NEGATIVE) Urine Barbiturates Screen Negative (NEGATIVE) Phencyclidine (PCP) Screen Negative (NEGATIVE) Urine Amphetamines Screen Negative (NEGATIVE) Urine Benzodiazepines Screen Negative (NEGATIVE) Urine Cocaine Screen Negative (NEGATIVE) Urine Marijuana (THC) Screen Positive (NEGATIVE) Hans Kidd MD Jun 29, 2018 14:09
[2018-06-29] MEDS: Eliquis 2.5mg tablet ORAL SCH (18:36)
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
[2018-06-29 20:00] VITALS: BP 137/81
[2018-06-29] MEDS: Benztropine 1mg tab ORAL SCH (21:14)
[2018-06-29] MEDS: BusPIRone 5mg Tab ORAL SCH (22:28)
[2018-06-30] VITALS: BP 125/54
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
--- NOTE | 2018-06-30 00:45 | Consultation ---
DATE OF CONSULTATION: 06/29/2018 "NOTE: POOR AUDIO QUALITY" CARDIOLOGY CONSULTATION CONSULTING PHYSICIAN: Hans Martinez M.D. REFERRING PHYSICIAN: Jamie Chase M.D. REASON FOR REFERRAL: Atrial fibrillation. HISTORY OF PRESENT ILLNESS: This is a 77-year-old gentleman with history of hospitalization at [facility], who was sent from [facility], who presented to the hospital with atrial fibrillation, diagnosed under the care of Dr. Chase. He initially refused to come to the hospital came to emergency room today at [facility] and has been diagnosed with atrial fibrillation, now being admitted. The patient really does not have any chest pain or pressure. There is no PND. No orthopnea. No palpitations. No dizziness or lightheadedness on standing. No pain, pressure, tightness, heaviness, or discomfort. He does now wake up at night because of shortness of breath and orthopnea. PAST MEDICAL HISTORY: Extensive with history of hypertension; benign prostatic hypertrophy; chronic arthritis mood disorder; diverticulitis, status post partial colectomy; and history of traumatic fall in August right hip fracture; history of head trauma; hypertension and diverticulitis, status post partial colectomy as mentioned. He does not have a prior cardiac condition. The patient has a history of renal failure at [facility] that resolved. ALLERGIES: He is not allergic to any medications. SOCIAL HISTORY: He smokes and drinks alcoholic beverages. He uses marijuana and denies any other drug use. REVIEW OF SYSTEMS: GASTROINTESTINAL: Negative. GENITOURINARY: Negative. PULMONARY: Negative. CONSTITUTIONAL: Negative. NEUROLOGIC: Negative. PHYSICAL EXAMINATION: GENERAL: Shows to be elderly gentleman, in no respiratory distress. NECK: Supple. No jugular venous distention. No abdominojugular reflux noted. LUNGS: Clear to auscultation and percussion. CARDIAC: S1 is normal. S2 is normal. Irregularly irregular. Not tachycardic. Not bradycardic. No heaves or thrills. ABDOMEN: Soft and nontender. Positive bowel sounds. EXTREMITIES: There is no clubbing, cyanosis, nor is there any edema. NEUROLOGICAL: He is awake, alert, and responsive, in no apparent distress. LABORATORY AND DIAGNOSTIC DATA: White count 9.2, hemoglobin of 15, and platelet count of 151. Sodium is 139, potassium 3.3, chloride 104, bicarbonate 22, BUN of 12, creatinine 1.1, and glucose of 153. Liver function tests are relatively normal. His first set of cardiac enzymes 0.001. ProBNP was only 1300 with an albumin of 3.8 and lipase of 163, and his urine drug screen was positive for marijuana, otherwise negative. He did have x-rays done of his chest in the emergency room interpreted by radiologist, borderline cardiomegaly, and no acute processes being diagnosed. His TSH was last checked in 2016 that is available and is normal. His EKG shows basically atrial fibrillation, ventricular response appears to be relatively well controlled in the 80s, some nonspecific T-wave changes, otherwise normal QRS axis is noted. ASSESSMENT AND PLAN: 1. Atrial fibrillation, known at least one week or so in duration. 2. Benign prostatic hypertrophy history. 3. History of traumatic fall with hip fracture and head trauma. 4. History of hypertension. 5. Chronic arthritis. 6. Bipolar disorder. 7. History of complicated diverticulitis, status post partial colectomy. This patient was seen in cardiac consultation. His heart rate appears to be well controlled and was not recorded at this time. He requires anticoagulation for stroke prevention. His [id number] VASc score is calculated at 2.2% risk of stroke felt to be high and oral anticoagulation is recommended if he is not receiving that. He really does not need much else and he does not seem to be still having any symptoms of acute coronary syndrome or congestive heart failure, probably should have an evaluation as outpatient after three or four weeks of being on anticoagulants to see if he requires cardioversion attempt back to normal rhythm and after three or four weeks of anticoagulation and I recommended that he stop the use of alcohol and drugs meantime to see if that may help decrease the chances of his success with cardioversion in the near future. I will follow the patient along with you. Hans Martinez M.D. DR: SOTERO JOB#: [id number] CC:
[2018-06-30 04:00] VITALS: BP 121/76
[2018-06-30 08:00] VITALS: BP 132/75
[2018-06-30] MEDS: Aspirin Baby 81mg ORAL SCH (08:38)
[2018-06-30] MEDS: Meloxicam 15 MG TAB ORAL SCH (08:38)
[2018-06-30] MEDS: Eliquis 2.5mg tablet ORAL SCH ×2 (08:39→18:20)
[2018-06-30 08:59] LABS: CHOLESTEROL 132 MG/DL (< 200); HDL CHOLESTEROL 58 MG/DL (40-60); TRIGLYCERIDES 75 MG/DL (30-150)
[2018-06-30] MEDS ORDERED: celeBREX 200mg Cap **SURGERY PATIENTS ONLY ORAL SCH (09:00)
[2018-06-30 12:00] VITALS: BP 145/104
--- NOTE | 2018-06-30 15:44 | Cardiology Report ---
APPROVED REPORT EKG Measurement Heart [id number] Atrial fibrillation T wave abnormality, consider lateral ischemia Prolonged QT Abnormal ECG
--- NOTE | 2018-06-30 15:52 | Cardiology Report ---
APPROVED REPORT EKG Measurement Heart [id number] Atrial fibrillation Possible Anterior infarct, age undetermined Abnormal ECG
[2018-06-30 16:00] VITALS: BP 144/97
--- NOTE | 2018-06-30 16:26 | Geriatric Progress Note ---
Assessment/Plan Problems: (1) Osteoarthritis, hip, bilateral (2) Osteoarthritis of both knees (3) Right acetabular fracture (4) New onset atrial fibrillation (5) Bipolar disorder (6) Gout (7) Peripheral neuropathy (8) Gait disorder (9) Vitamin D deficiency (10) Cyanocobalamin deficiency Assessment/Plan Patient asymptomatic with no tachycardia today, but with tachycardia when seen in office and yesterday on ambulation. Discussed with Dr. Martinez. He will eval and decide re rate control med and/or Ziopatch. Patient counselled again re bleeding risk on apixaban, discussed possibility of cardioversion in future after anticoagulation established for ~3 weeks. Expect d/c tomorrow if no evidence of rate instability elicited. Discussed with: patient, hospital staff Subjective Interval Events Patient lying in bed, reports feeling well. Denies chest pain, SOB, palpitations. Ambulated with P.T. with no sxs precipitated. No tachycardia noted on monitor. Staff reports no issue re patient. Labs with mild hyperglycemia, normal troponins, moderate proBNP elevation, normal lipid profile, TSH normal. Echo without detected segmental wall motion abnormalities or significant valvular dysfunction. EF relatively normal, LA size normal. LE venous study without DVT evident. Constitutional: Denies: chills, pain, fever Respiratory: Denies: cough, orthopnea, shortness of breath Cardiovascular: Denies: chest pain, palpitations Gastrointestinal/Abdominal: Denies: abdominal pain, diarrhea, nausea Genitourinary: Denies: dysuria Musculoskeletal: Denies: back pain Geriatric Geriatric Last 24 Hour Vital Signs Date Time Temp Pulse Resp B/P (MAP) Pulse Ox O2 Delivery O2 Flow Rate FiO2 06/30/18 12:00 97.3 77 18 145/104 (118) 99 97.3 06/30/18 12:00 71 06/30/18 09:00 70 74 83 06/30/18 09:00 Room Air 06/30/18 08:39 67 132/75 06/30/18 08:00 70 06/30/18 08:00 97.3 67 18 132/75 (94) 100 97.3 06/30/18 04:00 97.7 67 20 121/76 (91) 98 97.7 06/30/18 03:54 61 06/30/18 00:00 97.7 74 20 125/54 (77) 96 97.7 06/29/18 23:31 84 06/29/18 21:00 Room Air 06/29/18 20:00 97.0 66 20 137/81 (99) 100 97.0 06/29/18 20:00 97 75 81 06/29/18 19:35 101 Intake and Output 06/29/18 06/30/18 19:00 07:00 Intake Total 120 ml Balance 120 ml Intake Oral 120 ml # Voids 2 2 Laboratory Tests Test 06/30/18 07:00 Troponin I 0.000 ng/mL (0.000-0.056) Pro-B-Type Natriuretic Peptide 1151 pg/mL (0-125) H Triglycerides Level 75 MG/DL (30-150) Cholesterol Level 132 MG/DL (< 200) LDL Cholesterol 64 mg/dL (<100) HDL Cholesterol 58 MG/DL (40-60) Cholesterol/HDL Ratio 2.3 (3.3-4.4) L Thyroid Stimulating Hormone (TSH) 3.311 uiU/mL (0.358-3.740) Current Medications Medications (Trade) Dose Ordered Sig/Mesfin Route PRN Reason Start Time Stop Time Status Last Admin Dose Admin Allopurinol (Allopurinol) 300 mg DAILY ORAL 06/30/18 09:00 07/30/18 08:59 06/30/18 08:38 Amlodipine Besylate (Norvasc) 5 mg DAILY ORAL 06/30/18 09:00 07/30/18 08:59 06/30/18 08:39 Apixaban (Eliquis) 5 mg BID ORAL 06/29/18 18:00 07/29/18 17:59 06/30/18 08:39 Aspirin (ASA) 81 mg DAILY ORAL 06/30/18 09:00 07/30/18 08:59 06/30/18 08:38 Benztropine Mesylate (Cogentin) 2 mg BEDTIME ORAL 06/29/18 21:00 07/29/18 20:59 06/29/18 21:14 Buspirone HCl (Buspar) 10 mg BEDTIME ORAL 06/29/18 22:30 07/29/18 22:29 06/29/18 22:28 Folic Acid (Folate) 1 mg DAILY ORAL 06/30/18 09:00 07/30/18 08:59 06/30/18 08:38 Haloperidol (Haldol) 20 mg BEDTIME ORAL 06/29/18 21:00 07/29/18 20:59 06/29/18 21:14 Meloxicam (Mobic) 15 mg DAILY ORAL 06/30/18 09:00 07/30/18 08:59 06/30/18 08:38 Terazosin HCl (Hytrin) 5 mg QHS ORAL 06/29/18 21:00 07/29/18 20:59 06/29/18 21:13 Height (Feet): 6 Height (Inches): 1.00 Weight (Pounds): 164 General Appearance: no apparent distress, alert, non-toxic Head: normocephalic, atraumatic Eyes: bilateral anicteric ENT: normal voice Neck: full range of motion, no mass Respiratory: lungs clear Cardiovascular: irregularly irregular - controlled Gastrointestinal: normal bowel sounds, non tender, soft, no mass, no organomegaly, non-distended Musculoskeletal: no calf tenderness Edema: no edema noted Generalized Neurologic: no new focality Jamie Chase MD Jun 30, 2018 16:26
[2018-06-30 20:02] VITALS: BP 132/71
[2018-06-30] MEDS: Benztropine 1mg tab ORAL SCH (20:37)
[2018-06-30] MEDS: BusPIRone 5mg Tab ORAL SCH (20:37)
--- NOTE | 2018-06-30 20:41 | Cardiology Progress Note ---
Assessment/Plan Assessment/Plan afib persistent recent onset htn bph bipolar do hs of tobacco etoh adn marijuana use s/p partial colectomy for diverticulitis hs o fall 2015 with no evidence of ic bleed on ct at [facility] hs of renal failure at [facility] resolved hr is controlled on eliquis after 4 week of anticoagulation will consider cardioversion hr is nto sig elelvated he has some slow episodes will not add any bb at this time he will need to fo with me as out pt for ziopatch to see if has sss keep on eliquis for stroke prevention d/w pt ? need asa?? to d/w dr borjas Subjective Cardiovascular: Denies: chest pain, lightheadedness, palpitations Respiratory: Denies: shortness of breath Gastrointestinal/Abdominal: Denies: abdominal pain Genitourinary: Denies: burning Objective Last 24 Hour Vital Signs Date Time Temp Pulse Resp B/P (MAP) Pulse Ox O2 Delivery O2 Flow Rate FiO2 06/30/18 20:02 97.9 76 18 132/71 (91) 99 97.9 06/30/18 16:00 97.2 71 18 144/97 (113) 99 97.2 06/30/18 16:00 61 06/30/18 12:00 97.3 77 18 145/104 (118) 99 97.3 06/30/18 12:00 71 06/30/18 09:00 70 74 83 06/30/18 09:00 Room Air 06/30/18 08:39 67 132/75 06/30/18 08:00 70 06/30/18 08:00 97.3 67 18 132/75 (94) 100 97.3 06/30/18 04:00 97.7 67 20 121/76 (91) 98 97.7 06/30/18 03:54 61 06/30/18 00:00 97.7 74 20 125/54 (77) 96 97.7 06/29/18 23:31 84 06/29/18 21:00 Room Air General Appearance: no apparent distress, alert Neck: supple Cardiovascular: irregularly irregular Respiratory/Chest: lungs clear Abdomen: normal bowel sounds, non tender, soft Extremities: no swelling Intake and Output 06/29/18 06/30/18 19:00 07:00 Intake Total 120 ml Balance 120 ml Intake Oral 120 ml # Voids 2 2 Laboratory Tests Test 06/30/18 07:00 Troponin I 0.000 ng/mL (0.000-0.056) Pro-B-Type Natriuretic Peptide 1151 pg/mL (0-125) H Triglycerides Level 75 MG/DL (30-150) Cholesterol Level 132 MG/DL (< 200) LDL Cholesterol 64 mg/dL (<100) HDL Cholesterol 58 MG/DL (40-60) Cholesterol/HDL Ratio 2.3 (3.3-4.4) L Thyroid Stimulating Hormone (TSH) 3.311 uiU/mL (0.358-3.740) Hans Martinez MD Jun 30, 2018 20:41
[2018-07-01 00:35] VITALS: BP 117/79
[2018-07-01 04:30] VITALS: BP 122/90
[2018-07-01 08:00] VITALS: BP 133/74
[2018-07-01] MEDS: Aspirin Baby 81mg ORAL SCH (08:17)
[2018-07-01] MEDS: Eliquis 2.5mg tablet ORAL SCH (08:17)
[2018-07-01] MEDS: Meloxicam 15 MG TAB ORAL SCH (08:18)
[2018-07-01 12:00] VITALS: BP 133/78
[2018-07-01] MEDS ORDERED: ELIQUIS2.5 MG ORAL (13:51)
[2018-07-01] MEDS ORDERED: ACETAMINOPHEN325 M1 ORAL (13:51)
--- NOTE | 2018-07-01 13:59 | Geriatric Progress Note ---
Assessment/Plan Problems: (1) Osteoarthritis, hip, bilateral (2) Osteoarthritis of both knees (3) Right acetabular fracture (4) New onset atrial fibrillation (5) Bipolar disorder (6) Gout (7) Peripheral neuropathy (8) Gait disorder (9) Vitamin D deficiency (10) Cyanocobalamin deficiency Assessment/Plan Patient sufficiently stable for d/c to home. Reviewed medication changes with patient. Due to initiation of apixaban, d/c ASA and Celebrex. Patient instructed re bleeding risk, encouraged to try Tylenol for arthritic sxs. Re-educated re risk of bleeding. Patient indicates understanding. Instructed to f/u with Dr. Martinez in 2wks. Apixaban, Tylenol transmitted to [facility]. F/u in office in 3weeks. Dictated #[id number] Discussed with: patient, hospital staff Subjective Interval Events Patient reports feeling well. No sustained tachycardic episodes noted. Dr. Martinez decided not to initiate betablockers. Per staff functionally stable. Constitutional: Denies: pain, sweats, fever Respiratory: Denies: cough, shortness of breath Cardiovascular: Denies: chest pain, palpitations Gastrointestinal/Abdominal: Denies: abdominal pain Genitourinary: Denies: dysuria Geriatric Geriatric Last 24 Hour Vital Signs Date Time Temp Pulse Resp B/P (MAP) Pulse Ox O2 Delivery O2 Flow Rate FiO2 07/01/18 12:00 80 07/01/18 12:00 97.0 77 18 133/78 (96) 100 97.0 07/01/18 09:00 Room Air 07/01/18 09:00 70 77 93 07/01/18 08:18 75 133/74 07/01/18 08:00 98.8 75 18 133/74 (93) 99 98.8 07/01/18 08:00 107 07/01/18 04:30 98.2 76 18 122/90 (101) 99 98.2 07/01/18 04:00 76 07/01/18 00:35 97.7 81 17 117/79 (92) 99 97.7 07/01/18 00:00 81 06/30/18 21:00 84 06/30/18 21:00 Room Air 06/30/18 20:02 97.9 76 18 132/71 (91) 99 97.9 06/30/18 20:00 78 06/30/18 16:00 97.2 71 18 144/97 (113) 99 97.2 06/30/18 16:00 61 Intake and Output 06/30/18 07/01/18 19:00 07:00 Intake Total 360 ml Output Total 150 ml Balance 360 ml -150 ml Intake Oral 360 ml Output Urine Total 150 ml # Voids 2 # Bowel Movements 1 Current Medications Medications (Trade) Dose Ordered Sig/Mesfin Route PRN Reason Start Time Stop Time Status Last Admin Dose Admin Allopurinol (Allopurinol) 300 mg DAILY ORAL 06/30/18 09:00 07/30/18 08:59 07/01/18 08:18 Amlodipine Besylate (Norvasc) 5 mg DAILY ORAL 06/30/18 09:00 07/30/18 08:59 07/01/18 08:18 Apixaban (Eliquis) 5 mg BID ORAL 06/29/18 18:00 07/29/18 17:59 07/01/18 08:17 Aspirin (ASA) 81 mg DAILY ORAL 06/30/18 09:00 07/30/18 08:59 07/01/18 08:17 Benztropine Mesylate (Cogentin) 2 mg BEDTIME ORAL 06/29/18 21:00 07/29/18 20:59 06/30/18 20:37 Buspirone HCl (Buspar) 10 mg BEDTIME ORAL 06/29/18 22:30 07/29/18 22:29 06/30/18 20:37 Folic Acid (Folate) 1 mg DAILY ORAL 06/30/18 09:00 07/30/18 08:59 07/01/18 08:18 Haloperidol (Haldol) 20 mg BEDTIME ORAL 06/29/18 21:00 07/29/18 20:59 06/30/18 20:37 Meloxicam (Mobic) 15 mg DAILY ORAL 06/30/18 09:00 07/30/18 08:59 07/01/18 08:18 Terazosin HCl (Hytrin) 5 mg QHS ORAL 06/29/18 21:00 07/29/18 20:59 06/30/18 20:37 Height (Feet): 6 Height (Inches): 1.00 Weight (Pounds): 164 General Appearance: no apparent distress, alert, non-toxic Head: normocephalic, atraumatic Eyes: bilateral anicteric ENT: normal voice Neck: full range of motion, no mass Respiratory: lungs clear, decreased breath sounds Cardiovascular: irregularly irregular Gastrointestinal: normal bowel sounds, non tender, soft, no mass, no organomegaly Musculoskeletal: no calf tenderness Edema: no edema noted Generalized Neurologic: alert, no new focality Jamie Chase MD Jul 01, 2018 13:59
--- NOTE | 2018-07-01 15:57 | Diagnostic Imaging Report ---
APPROVED REPORT CPT Code: 70320 Present Symptoms Comments: Cough BILATERAL: Imaging reveals a patent deep venous system bilaterally. There is no evidence of thrombus within the femoral, popliteal or tibial segments. The greater saphenous veins are also within normal limits. Doppler indicates normal spontaneous flow within these segments.
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
--- NOTE | 2018-07-04 18:24 | Cardiology Report ---
APPROVED REPORT EXAM: Two-dimensional and M-mode echocardiogram with Doppler and color Doppler. INDICATION A-FLUTTHER M-Mode DIMENSIONS IVSd1.4 (0.7-1.1cm)Left Atrium (MM)3.6 (1.6-4.0cm) LVDd5.1 (3.5-5.6cm)Aortic Root3.6 (2.0-3.7cm) PWd1.5 (0.7-1.1cm)Aortic Cusp Exc.2.0 (1.5-2.0cm) IVSs2.1 cm LVDs3.7 (2.5-4.0cm) PWs1.5 cm Normal left ventricular chamber size, systolic function and wall motion . Left ventricular ejection fraction estimated to be 55 -6%. Mild left ventricular hypertrophy by 2-D. No evidence of pericardial effusion. Mild left atrial enlargements . Right cardiac chamber sizes are within normal limits. Focal aortic valve sclerosis with adequate cusp excursion. Thickened mitral valve leaflets with normal excursion. Mitral annulus and aortic root calcification. Pulmonic valve not well visualized. Normal tricuspid valve structure. IVC dilated at 2.4cm normal size with physiologic collapse. A color flow and spectral Doppler study was performed and revealed: Mild aortic regurgitation. Trivial mitral regurgitation. Left ventricular diastolic function can not determined due to A-FLUTTER. Mild tricuspid regurgitation. Tricuspid systolic velocities suggests peak right ventricular systolic pressure of 33-38mmHg
== END 2018-07-01 15:50 | disposition home or self-care (01) | DRG 310 ==
LOC: EMR 10:25 → 2E 11:26 → EDBEDREQ 12:04
DX: I48.1 Persistent atrial fibrillation (principal); I10 Essential (primary) hypertension; F31.9 Bipolar disorder, unspecified; F43.10 Post-traumatic stress disorder, unspecified; F12.90 Cannabis use, unspecified, uncomplicated; N40.0 Benign prostatic hyperplasia without lower urinary tract symptoms; M10.9 Gout, unspecified; M17.0 Bilateral primary osteoarthritis of knee; M16.0 Bilateral primary osteoarthritis of hip; G62.9 Polyneuropathy, unspecified; E55.9 Vitamin D deficiency, unspecified; R26.9 Unspecified abnormalities of gait and mobility
CPT/HCPCS: 36415; 71045; 80053; 80061; 80307; 82550; 82553; 83690; 83880; 84443; 84484; 85025; 93005; 93306; 93970; 99285; J8499

== ENCOUNTER 2018-07-15 10:55 | Outpatient (RCR) | payer MEDICARE, MEDICAID ==
[~2018-07-15 10:55] MED LIST changes: +ACETAMINOPHEN325 M1 ORAL; +ELIQUIS2.5 MG ORAL
== END 2018-07-25 | disposition home or self-care (01) ==
LOC: PTY 10:55
DX: R26.9 Unspecified abnormalities of gait and mobility (principal)